=== PATIENT | female | born 1985 | race American Indian/Alaskan Native ===

== ENCOUNTER 2022-02-13 14:28 | Emergency (ER) | payer OTHER, MEDICAID ==
[2022-02-13 14:35] VITALS: BP 118/82
[2022-02-13] MEDS ORDERED: CYCLOBENZAPRINE 10 MG TAB PO ONE (18:25)
[2022-02-13] MEDS ORDERED: KETOROLAC 10 MG TAB PO ONE (18:25)
[2022-02-13] MEDS ORDERED: oxyCODONE /ACETAMINOPHEN 5-325MG TAB PO ONE (18:25)
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
== END 2022-02-13 22:08 | disposition home or self-care (01) ==
LOC: ED 14:28
DX: S39.012A Strain of muscle, fascia and tendon of lower back, initial encounter (principal); S16.1XXA Strain of muscle, fascia and tendon at neck level, initial encounter; F17.200 Nicotine dependence, unspecified, uncomplicated; V89.2XXA Person injured in unspecified motor-vehicle accident, traffic, initial encounter; Y93.89 Activity, other specified; Y92.89 Other specified places as the place of occurrence of the external cause; Y99.8 Other external cause status
CPT/HCPCS: 70450; 72070; 72125; 99284